=== PATIENT | male | born 1955 | race Caucasian/White ===

== ENCOUNTER 2018-11-02 16:24 | Emergency (ER) | payer OTHER ==
[2018-11-02 17:22] VITALS: BMI 25.8
--- NOTE | 2018-11-02 17:24 | PDOC ---
Rapid Medical Evaluation Medical Evaluation: Allergies Allergy/AdvReac Type Severity Reaction Status Date / Time No Known Allergies Allergy Verified 11/19/14 09:39 11/02/18 17:19 I have performed a brief in-person evaluation of this patient. The patient presents with a chief complaint of: chest pain Pertinent physical exam findings: CP for a few seconds but has had left arm associated pain x 5 days. Sent from [facility]D for ER eval for CP and mult complaints I have ordered the following: EKG, patient walked to ER for eval. - The patient will proceed to the ED for further evaluation. 11/02/18 21:58 Discharge Disposition - Diagnosis Chest pain Qualifiers: Chest pain type: unspecified Qualified Code(s): R07.9 - Chest pain, unspecified - Discharge Dispostion Disposition: HOME Condition at time of disposition: Stable - Referrals Referrals: Lulu Kamara MD [Primary Care Provider] - - Patient Instructions Additional Instructions: Your ED visit is not completed sleep visit with her primary doctor. Call to make an appointment for reevaluation within the next 7 days. Keep well-hydrated. Well-balanced diet. Return to emergency department for chest pain, shortness of breath, abdominal pain, nausea, vomiting sweating or any other concerns. Thank you very much for choosing us to provide your emergent health care needs. - Post Discharge Activity
--- NOTE | 2018-11-02 17:52 | PDOC ---
History of Present Illness - General Chief Complaint: Pain Stated Complaint: PCP SENT Time Seen by Provider: 11/02/18 17:31 History Source: Patient Exam Limitations: No Limitations - History of Present Illness Initial Comments: 11/02/18 19:09 Patient is a 62-year-old male with past medical history of hypertension, hyperlipidemia, diabetes, [id number], who presents to the emergency department today from his primary care doctor's office for intermittent chest pain and left arm pain. Patient states the arm pain is going on for 5 days. He states that the chest pain feels like little tingles. He states that the tingling episodes last between one or 2 seconds and then resolve on their own. Patient does not have chest pain at this time. Denies associated shortness of breath, difficulty breathing, nausea, vomiting, diarrhea, chest pain on exertion shortness of breath on exertion. Past History - Travel Traveled outside of the country in the last 30 days: No Close contact w/someone who was outside of country & ill: No - Past Medical History Allergies/Adverse Reactions: Allergies Allergy/AdvReac Type Severity Reaction Status Date / Time No Known Allergies Allergy Verified 11/02/18 17:19 Home Medications: Ambulatory Orders Aspirin [ASA -] 81 mg PO DAILY 11/02/18 Atorvastatin Ca [Lipitor] 40 mg PO HS 11/02/18 Metformin HCl [Glucophage] 1,000 mg PO BID 11/02/18 Ramipril 2.5 mg PO DAILY 11/02/18 - Immunization History Td Vaccination: Yes TDAP Vaccination: Yes Immunization Up to Date: Yes - Suicide/Smoking/Psychosocial Hx Smoking Status: No Smoking History: Never smoked Have you smoked in the past 12 months: No Number of Cigarettes Smoked Daily: 0 Cigars Per Day: 0 Hx Alcohol Use: No Drug/Substance Use Hx: No Substance Use Type: None Review of Systems - Review of Systems Able to Perform ROS?: Yes Comments:: 11/02/18 19:10 CONSTITUTIONAL: Absent: fever, chills, diaphoresis, generalized weakness, malaise, loss of appetite HEENT: Absent: rhinorrhea, nasal congestion, throat pain, throat swelling, difficulty swallowing, mouth swelling, ear pain, eye pain, visual Changes CARDIOVASCULAR: Present: chest pain Absent: loss of consciousness, palpitations, irregular heart rate, peripheral edema RESPIRATORY: Absent: cough, shortness of breath, dyspnea with exertion, orthopnea, wheezing, stridor, hemoptysis GASTROINTESTINAL: Absent: abdominal pain, abdominal distension, nausea, vomiting, diarrhea, constipation, melena, hematochezia GENITOURINARY: Absent: dysuria, frequency, urgency, hesitancy, hematuria, flank pain, genital pain MUSCULOSKELETAL: Present: L arm pain Absent: myalgia, arthralgia, joint swelling SKIN: Absent: rash, itching, pallor HEMATOLOGIC/IMMUNOLOGIC: Absent: easy bleeding, easy bruising, lymphadenopathy, frequent infections ENDOCRINE: Absent: unexplained weight gain, unexplained weight loss, heat intolerance, cold intolerance NEUROLOGIC: Absent: headache, focal weakness or paresthesias, dizziness, unsteady gait, seizure, mental status changes, bladder or bowel incontinence PSYCHIATRIC: Absent: anxiety, depression, suicidal or homicidal ideation, hallucinations. Is the patient limited [place] proficient: No *Physical Exam - Vital Signs Last Vital Signs Temp Pulse Resp BP Pulse Ox 97.9 F 63 18 156/82 98 11/02/18 17:20 11/02/18 17:20 11/02/18 17:20 11/02/18 17:20 11/02/18 17:20 - Physical Exam Comments: 11/02/18 19:10 GENERAL: Well developed, well nourished. Awake and alert. No acute distress. HEENT: Normocephalic, atraumatic. PERRLA, EOMI. No conjunctival pallor. Sclera are non- icteric. Moist mucous membranes. Oropharynx is clear. NECK: Supple. Full ROM. No JVD. Carotid pulses 2+ and symmetric, without bruits. No thyromegaly. No lymphadenopathy. CARDIOVASCULAR: Regular rate and rhythm. No murmurs, rubs, or gallops. Distal pulses are 2+ and symmetric. PULMONARY: No evidence of respiratory distress. Lungs clear to auscultation bilaterally. No wheezing, rales or rhonchi. ABDOMINAL: Soft. Non-tender. Non-distended. No rebound or guarding. No organomegaly. Normoactive bowel sounds. MUSCULOSKELETAL Normal range of motion at all joints. No bony deformities or tenderness. No CVA tenderness. EXTREMITIES: No cyanosis. No clubbing. No edema. No calf tenderness. SKIN: Warm and dry. Normal capillary refill. No rashes. No jaundice. NEUROLOGICAL: Alert, awake, appropriate. Cranial nerves 2-12 intact. No deficits to light touch and temperature in face, upper extremities and lower extremities. No motor deficits in the in face, upper extremities and lower extremities. Normoreflexic in the upper and lower extremities. Normal speech. Toes are down- going bilaterally. Gait is normal without ataxia. PSYCHIATRIC: Cooperative. Good eye contact. Appropriate mood and affect. Moderate Sedation - Procedure Monitoring Vital Signs: Procedure Monitoring Vital Signs Temperature 97.9 F 11/02/18 17:20 Pulse Rate 63 11/02/18 17:20 Respiratory Rate 18 11/02/18 17:20 Blood Pressure 156/82 11/02/18 17:20 O2 Sat by Pulse Oximetry (%) 98 11/02/18 17:20 ED Treatment Course - LABORATORY CBC & Chemistry Diagram: 11/02/18 18:40 11/02/18 18:40 Medical Decision Making - Medical Decision Making 11/02/18 19:10 Patient is 62-year-old male with past medical history hyperlipidemia, hypertension, diabetes who presents to the ER for intermittent tingling in his chest and left arm pain for 5 days. On exam patient is chest pain-free. Patient reports he hasn't been able to take his medications over the past month. Labs, urine, EKG and chest x-ray ordered. EKG shows a rate of 60 bpm, and SR, normal axis, normal intervals. No acute ST- T wave changes. Pt signed out to BAIRON Jose. Pt pending labs Anticipate DC home *DC/Admit/Observation/Transfer Diagnosis at time of Disposition: Chest pain - Referrals Referrals: Lulu Kamara MD [Primary Care Provider] - - Patient Instructions - Post Discharge Activity
[2018-11-02 19:04] LABS: BASO % 1.2 % (0-2.0); EOS % 3.8 % (0-4.5); HEMATOCRIT 38.7 % (35.4-49); HEMOGLOBIN 12.5 GM/dL (11.7-16.9); LYMPH % 37.9 % (8-40); MCH 20.9 pg (25.7-33.7); MCHC 32.2 g/dl (32.0-35.9); MEAN PLT VOLUME 7.6 fl (7.5-11.1); MONO % 9.8 % (3.8-10.2); NEUT % 47.3 % (42.8-82.8); PLATELET COUNT 277 K/MM3 (134-434); RBC 5.95 M/mm3 (4.00-5.60); RDW 16.3 % (11.9-15.9); WHITE BLOOD COUNT 7.6 K/mm3 (4.0-10.0)
--- NOTE | 2018-11-02 19:22 | PDOC ---
*Physical Exam - Vital Signs Last Vital Signs Temp Pulse Resp BP Pulse Ox 97.9 F 63 18 156/82 98 11/02/18 17:20 11/02/18 17:20 11/02/18 17:20 11/02/18 17:20 11/02/18 17:20 - Physical Exam General Appearance: Yes: Appropriately Dressed. No: Apparent Distress Respiratory/Chest: positive: Lungs Clear, Normal Breath Sounds. negative: Respiratory Distress, Accessory Muscle Use Cardiovascular: positive: Regular Rhythm, Regular Rate, S1, S2. negative: Edema , JVD, Murmur Gastrointestinal/Abdominal: positive: Normal Bowel Sounds, Soft. negative: Tender Heart Score/ECG Review - History History: Slightly suspicious - Electrocardiogram EKG: Normal - Age Age: 45-65 - Risk Factors Risk Factors Heart Score: Yes Hx Hypercholesterolemia, Yes Hx Hypertension, Yes Hx Diabetes Based on the list above the patient has:: >/=3 risk factors or Hx atherosclerotic disease - Troponin Troponin: </= normal limit - Score Heart Score - Total: 3 - ECG Intrepretation Rhythm: Regular Rhythm - [place]: Normal - ECG Impressions Normal ECG: Yes ED Treatment Course - LABORATORY CBC & Chemistry Diagram: 11/02/18 18:40 11/02/18 18:40 Progress Note - Progress Note Progress Note: Received signout from TAISHA Bull. Briefly this is a 62-year-old male with history of hypertension, hyperlipidemia , diabetes presents emergency department for evaluation of intermittent chest pain. Patient currently pain-free. EKG reveals sinus rhythm with rate of 60. Normal intervals. No ischemic changes present. Patient is pending labs, urine and chest x-ray Medical Decision Making - Medical Decision Making 11/02/18 20:35 Laboratory testing laboratory testing reveals CK-MB 4.7 with a troponin of less than 0.02. Chest x-rays read by me: Normal chest exam. *DC/Admit/Observation/Transfer Diagnosis at time of Disposition: Chest pain Qualifiers: Chest pain type: unspecified Qualified Code(s): R07.9 - Chest pain, unspecified - Discharge Dispostion Disposition: HOME Condition at time of disposition: Stable Decision to Admit order: No - Referrals Referrals: Lulu Kamara MD [Primary Care Provider] - - Patient Instructions Additional Instructions: Your ED visit is not completed sleep visit with her primary doctor. Call to make an appointment for reevaluation within the next 7 days. Keep well-hydrated. Well-balanced diet. Return to emergency department for chest pain, shortness of breath, abdominal pain, nausea, vomiting sweating or any other concerns. Thank you very much for choosing us to provide your emergent health care needs. - Post Discharge Activity
[2018-11-02 19:29] LABS: ALK PHOS 63 U/L (45-117); ANION GAP 7 MMOL/L (8-16); BILIRUBIN,TOTAL 0.6 mg/dL (0.2-1); BLOOD UREA NITROGEN 19 mg/dL (7-18); CALCIUM 8.9 mg/dL (8.5-10.1); CHLORIDE 107 mmol/L (98-107); CO2 28 mmol/L (21-32); GLUCOSE,RANDOM 113 mg/dL (74-106); POTASSIUM 4.7 mmol/L (3.5-5.1); SGOT/AST 18 U/L (15-37); SGPT/ALT 30 U/L (13-61); SODIUM 141 mmol/L (136-145); TOT PROT 7.8 g/dl (6.4-8.2)
[2018-11-02 20:28] VITALS: BP 137/78; PULSE 74; TEMP 98.7
--- NOTE | 2018-11-03 14:25 | EKG ---
Test Reason : Blood Pressure : / mmHG Vent. Rate : 060 BPM Atrial Rate : 060 BPM P-R Int : 172 ms QRS Dur : 090 ms QT Int : 396 ms P-R-T Axes : 011 008 027 degrees QTc Int : 396 ms NORMAL SINUS RHYTHM NORMAL ECG NO PREVIOUS ECGS AVAILABLE Confirmed by ASHLEE ADAMS MD ([id number]) on 11/03/2018 2:25:11 PM Referred By: Confirmed By:ASHLEE ADAMS MD
== END 2018-11-02 20:41 | disposition home or self-care (01) ==
LOC: JER 16:24
DX: R07.9 Chest pain, unspecified (principal); I10 Essential (primary) hypertension; E78.00 Pure hypercholesterolemia, unspecified; E11.9 Type 2 diabetes mellitus without complications; Z79.84 Long term (current) use of oral hypoglycemic drugs
CPT/HCPCS: 36415; 71046-TC-FY; 80053; 82550; 82553; 84484; 85025; 93005; 93010; 99283-25